=== PATIENT | female | born 1975 | race American Indian/Alaskan Native ===

== ENCOUNTER 2017-06-11 07:30 | Inpatient (IN) | payer BC ==
--- NOTE | 2017-06-10 22:03 | History and Physical Report ---
History of Present Illness Date of examination: 06/09/17 History of present illness: Patient admitted for repeat section. Patient informed the risks of the surgery include bleeding possibly bleeding heavy enough to require blood transfusion, infection possible damage to bowel bladder ureter. Patient understands that due to her previous surgery she is an increased risks of adjacent organ damage. Patient's questions answered. Patient understands and desires to proceed. Menstrual History Regularity: regular Menses every: 27 days Duration: 4 LMP: 09/29/2016 LMP reliability: definite LMP character: normal test type: urine test Date: 11/17/2016 BC at conception: none Planned ? no EDC Calculations LMP: 07/06/2017 EDC Confirmation: 07/06/2017 Past History : 3 Term Births: 1 Premature Births: 1 Living Children: 2 Para: 2 Mult. Births: 0 Prev : 1 Aborta: 0 Elect. Ab: 0 Spont. Ab: 0 Ectopics: 0 # 1 Delivery date: 10/12/2009 Weeks Gestation: 39 labor: no Delivery type: Hours of labor: 14 Anesthesia type: epidural Delivery location: [facility] Infant Sex: Female weight: 7-0 Comments: Large myoma preventing decent # 2 Delivery date: 03/19/2014 Weeks Gestation: 29 2/7 Delivery type: Anesthesia type: general Delivery location: [facility] Sex: female weight: 3.06 Comments: anemia, hemorrhage, placental abruption Past Medical History: Anemia Neurologic Disorder Migraine Blood Transfusions Past Surgical History: x 2 Heel cord surgery 13yo Myomectomy (10/14/2010) w/COLTON Past Medical History Abnormal PAP: negative JOSUE Exposure: negative Infertility: negative Uterine Anomaly: positive Other Gynecologic Problems: negative Social Hx: , no etoh, no illicit drug use, no tobacco use real estate agency principal Middle school Genetic History ADVANCED MATERNAL AGE Congenital Heart Defect: Mom: no Dad: no Steven Disease: Mom: no Dad: no Thalassemia Mom: no Dad: no Neural Tube Defect Mom: no Dad: no Down's Syndrome Mom: no Dad: no Dallas-Sachs Mom: no Dad: no Sickle Cell Disease/Trait Mom: no Dad: no Hemophilia Mom: no Dad: no Muscular Dystrophy Mom: no Dad: no Cystic Fibrosis Mom: no Dad: no Pam Chorea Mom: no Dad: no Mental Retardation Mom: no Dad: no Fragile X Mom: no Dad: no Other Genetic/Chromosomal Disorder Mom: no Dad: no Child w/other defect Mom: no Dad: no Enviromental Exposures Xray Exposure: no Medication, drug, or alcohol use since LMP: no Chemical/Other Exposure: no Exposure to Cat Liter: no 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 Current Allergies (reviewed today): No known allergies Past History Past Medical History: other (See HPI) Past Surgical History: section, myomectomy, other (See HPI) AGRICULTURAL MECHANIC History: fibroids (See HPI), other Family/Genetic History: other (See HPI) Social history: other (See HPI) - Obstetrical History Expected Date of Delivery: 07/06/17 Actual Gestation: 36 Week(s) 3 Day(s) : 3 Para: 2 Hx # Term Pregnancies: 1 Number of Pregnancies: 1 Spontaneous Abortions: 0 Induced : 0 Number of Living Children: 2 Medications and Allergies Allergies Allergy/AdvReac Type Severity Reaction Status Date / Time No Known Allergies Allergy Verified 03/19/14 17:42 Home Medications Medication Instructions Recorded Confirmed Last Taken Type Docusate Sodium [Colace] 100 mg PO BID PRN #60 capsule 03/19/14 Unknown Rx Ferrous Gluconate [Fergon] 325 mg PO QDAY #30 tablet 03/19/14 Unknown Rx Ibuprofen [Motrin] 800 mg PO Q8H PRN #30 tablet 03/19/14 Unknown Rx oxyCODONE /ACETAMINOPHEN [Percocet 1 - 2 tab PO Q6HR PRN #30 tablet 03/19/14 Unknown Rx 5/325] - Physical Exam Breasts: Positive: deferred Cardiovascular: Regular rate Lungs: Positive: Normal air movement Abdomen: Positive: normal appearance, normal bowel sounds Genitourinary (Female): Positive: normal external genitalia Vagina: Positive: normal moisture Uterus: Positive: enlarged Results Result Diagrams: 06/11/17 10:30 All other labs normal. Assessment and Plan - Patient Problems (1) 36 weeks gestation of Current Visit: Yes Status: Acute (2) Placenta previa antepartum in third trimester Current Visit: Yes Status: Acute Plan to address problem: Discuss the risks of the surgery including infection, bleeding possibly heavy enough to require a blood transfusion, possible damage to bowel, bladder or ureter. Her questions were answered. Patient understands and desires to proceed (3) Encounter for sterilization Current Visit: Yes Status: Acute Plan to address problem: Patient desires sterilization.Discuss the permanency of sterilization. High risk of regret and 0.5 to 1% risk of failure. Questions answered Patient understands and desires to proceed. (4) H/O myomectomy Current Visit: No Status: Acute (5) Previous delivery affecting Current Visit: No Status: Acute
[2017-06-11] MEDS: LACTATED RINGERS 1,000 ML IV SCH ×2 (10:58→11:27)
[2017-06-11] MEDS ORDERED: REGLAN IV NR (11:00)
[2017-06-11] MEDS ORDERED: ANCEF/STERILE WATER 2 GM/20 ML 2 GM/20 ML SYRINGE IV NR (11:00)
[2017-06-11] MEDS ORDERED: BICITRA PO NR (11:00)
[2017-06-11] MEDS ORDERED: PITOCin/NS 20 UNIT/1000ML DRIP 20 UNITS/1,000 ML BAG IV SCH ×2 (11:00→15:55)
[2017-06-11] MEDS ORDERED: PEPCID IV NR (11:00)
--- NOTE | 2017-06-11 11:12 | Anesthesia Consultation ---
Anesthesia Consult and Med Hx - Airway Anesthetic Teeth Evaluation: Good ROM Head & Neck: Adequate Mental/Hyoid Distance: Adequate Mallampati Class: Class II Intubation Access Assessment: Probably Good - Pulmonary Exam CTA: Yes - Cardiac Exam Cardiac Exam: RRR - Pre-Operative Health Status ASA Pre-Surgery Classification: ASA2 Proposed Anesthetic Plan: Spinal - Pulmonary Hx Asthma: No COPD: No Hx Pneumonia: No - Cardiovascular System Hx Hypertension: No - Central Nervous System Hx Seizures: No Hx Psychiatric Problems: No - Endocrine Hx Renal Disease: No Hx End Stage Renal Disease: No Hx Hypothyroidism: No Hx Hyperthyroidism: No - Hematic Hx Anemia: No Hx Sickle Cell Disease: No - Other Systems Hx Alcohol Use: No - Additional Comments Anesthesia Medical History Comments:
[2017-06-11] MEDS ORDERED: ASTRAMORPH PF 10MG/10ML ONE (11:30)
[2017-06-11] MEDS ORDERED: PHENERGAN PO PRN (11:37)
[2017-06-11] MEDS ORDERED: NARCAN 0.4 MG/1 ML IV PRN ×2 (11:37→15:55)
[2017-06-11] MEDS ORDERED: PHENERGAN PR PRN (11:37)
[2017-06-11] MEDS ORDERED: DILAUDID IV PRN (11:37)
[2017-06-11] MEDS ORDERED: ZOFRAN IV PRN (11:37)
[2017-06-11 11:39] LABS: Basophils % (Auto) 0.2 % (0.0-1.8); Eosinophils % (Auto) 0.6 % (0.0-4.3); Hematocrit 34.2 % (30.3-42.9); Hemoglobin 11.5 gm/dl (10.1-14.3); Lymphocytes # (Auto) 1.5 K/mm3 (1.2-5.4); Lymphocytes % (Auto) 22.7 % (13.4-35.0); Mean Corpuscular HGB Conc 34 % (30-34); Mean Corpuscular Hemoglobin 32 pg (28-32); Mean Corpuscular Volume 94 fl (79-97); Monocytes # (Auto) 0.7 K/mm3 (0.0-0.8); Monocytes % (Auto) 10.6 % (0.0-7.3); Platelet Count 158 K/mm3 (140-440); Red Blood Count 3.62 M/mm3 (3.65-5.03); Red Cell Distribution Width 15.6 % (13.2-15.2)
[2017-06-11] MEDS ORDERED: SODIUM CHLORIDE FLUSH SYRINGE 10 ML IV NR (12:00)
[2017-06-11] MEDS ORDERED: XYLOCAINE MPF 2% ONE ×4 (12:16→13:49)
[2017-06-11] MEDS ORDERED: NACL 0.9% IR ONE (12:20)
[2017-06-11] MEDS ORDERED: WATER FOR IRRIG STERILE IR ONE (12:20)
[2017-06-11] MEDS ORDERED: VERSED ONE (12:52)
--- NOTE | 2017-06-11 12:59 | Anesthesia Day of Surgery ---
Anesthesia Day of Surgery - Day of Surgery Patient Examined: Yes Patient H&P Reviewed: Yes Patient is NPO: Yes Pj's Test: N/A
[2017-06-11] MEDS ORDERED: ZOFRAN ONE (13:33)
[2017-06-11] MEDS ORDERED: NACL 0.9% 1000 ML 1,000 ML ONE (13:35)
--- NOTE | 2017-06-11 14:08 | Operative Report ---
Operative Report Operative Report: Date of procedure: 06/11/2017 Pre-operative diagnosis: Intrauterine at 36 weeks with placenta previa , previous myomectomy and previous section 2. Patient desires permanent sterilization Post-operative diagnosis: Same plus severe pelvic adhesive disease Procedure name(s): Repeat section with T-ing of the uterine, lysis of adhesions and bilateral tubal ligation modified E[place] type Surgeon: Doe Alejandro MD Leak Patcher: tory Anesthesia: Spinal EBL: 1000 mL Complications: None Findings: Patient with severe adhesions between the anterior abdominal wall and anterior uterus and omentum and rectus muscles. Female weight 6 lbs. 8 oz. Apgars 7 at 1 minute and 8 at 5 minutes. Adhesions of bilateral fallopian tubes with distance adhesions the left fallopian tube normal ovaries bilaterally. Specimen(s): Procedure: The patient was brought to the operating room. A spinal was placed without any complications. She was then placed in left lateral tilt. Prepped and draped in the usual sterile manner. After testing for adequate anesthesia level, a Pfannenstiel incision was made through her previous scar. This incision was taken down to the fascia. The fascia was then nicked in the midline. This incision was extended out laterally with Claire scissors. The fascia was then sharply and bluntly from the underlying rectus muscles. Thick adhesions between the anterior uterine wall rectus muscles and anterior wall of the uterus. The anterior uterine wall was entered during the lysis of lesions. The rectus muscles were bluntly and sharply . The peritoneum was then entered with the angledozer operator's fingers. This incision was spread vertically with care not to damage the bladder below. The bladder flap was then formed sharply and bluntly through thick scarring with Metzenbaum and Claire scissors. No evidence of bladder damage. The Harsh self-retaining tractor was then placed wi. A transverse incision was made in lower uterine segment. This incision was extended with the operators fingers with distention caudally into the incision made in the anterior uterus. An anterior placenta was then approached and down bluntly until the amniotic sac was reached. The amniotic sac was then entered . The infant was delivered from the vertex position. Bulb suction on the mother's abdomen. Cord was double clamped and cut. The was then passed to the nursery personnel who were in attendance. The above scores were given by the nursery personnel. The placenta was then bluntly removed. The uterus was then externalized and wiped clean the remaining products. The uterine incision was closed in layers. First closing deep in the myometrium first vertical incision then the transverse incision. The first closure was done in a locking manner using 0 Vicryl. This was followed by imbricating stitch also with 0 Vicryl. Both the skin and the serosa vertically and transversely. Attention was then switched to the patient's fallopian tubes. Each fallopian tube was identified by its fimbriated end. The left fallopian tube needed lysis of adhesions to expose its fimbriated end which was adhesed to the left side of patient's uterus and adhesed to omentum. Bilaterally the round ligaments were identified also. A portion of each tube was grabbed with the Josephine clamp approximately 2-3 cm from the cornua. Each loop was double ligated with 0 plain suture. The loop were cut with Metzenbaum scissors. Each stump was found to be hemostatic and cauterized with the Bovie. Attention was then switched back to the uterine closure. This closure was hemostatic. The bladder flap was copiously irrigated and found to be hemostatic. The pelvis was copiously irrigated and found to be hemostatic. The uterus was then placed back to the patient's abdomen. The retractors were removed. The rectus muscles were inspected and found to be hemostatic. The fascia was then closed in a running manner using 0 Vicryl. This incision was hemostatic irrigation Bovie. The skin was reapproximated with 4-0 Vicryl subcuticularly. The patient tolerated procedure well. Her urine was clear. The infant was admitted to the well baby nursery. The patient was accompanied to recovery room in good condition. Instrument count correct 3.
[2017-06-11] MEDS: DILAUDID IV PRN ×2 (14:33→14:58)
[2017-06-11] MEDS ORDERED: TORADOL IV PRN (15:18)
[2017-06-11] MEDS ORDERED: LANSINOH TP PRN (15:55)
[2017-06-11] MEDS ORDERED: MILK OF MAGNESIA PO PRN (15:55)
[2017-06-11] MEDS ORDERED: D5LR 1,000 ML IV SCH (15:55)
[2017-06-11] MEDS ORDERED: TUCKS PAD TP PRN (15:55)
[2017-06-11] MEDS ORDERED: ANCEF/NS 1 GM/50 ML 1 GM/50 ML BAG IV SCH (15:55)
[2017-06-11 18:53] LABS: Hemoglobin 9.8 gm/dl (10.1-14.3)
[2017-06-11] MEDS: TORADOL IV SCH ×2 (21:12→21:15)
[2017-06-11] MEDS: ceFAZolin 1 GM in NACL 0.9% 20 ML IV SCH (21:16)
[2017-06-12 03:22] LABS: Hematocrit 24.3 % (30.3-42.9); Hemoglobin 8.1 gm/dl (10.1-14.3)
[2017-06-12] MEDS: ceFAZolin 1 GM in NACL 0.9% 20 ML IV SCH (04:30)
[2017-06-12] MEDS: TORADOL IV SCH ×2 (04:30→10:16)
--- NOTE | 2017-06-12 08:37 | Progress Note ---
Assessment and Plan - Patient Problems (1) delivery delivered Current Visit: Yes Status: Acute (2) Encounter for sterilization Current Visit: Yes Status: Acute (3) Anemia Current Visit: Yes Status: Acute Qualifiers: Other causes of anemia: acute posthemorrhagic Plan to address problem: Asymptomatic, recheck H/H, observe closely Subjective - Subjective Date of service: 06/12/17 Principal diagnosis: POD#1 RC/S with BTL Interval history: No complaints, minimla bleeding Patient reports: appetite normal, voiding normally Objective - Vital Signs Latest vital signs: Vital Signs Temp Pulse Resp BP BP BP Pulse Ox 06/12/17 06:15 97.9 F 87 20 108/67 06/12/17 01:58 97.6 F 79 20 97/53 06/11/17 21:00 98.7 F 81 18 101/62 06/11/17 15:37 98.0 F 93 H 18 99/66 99/66 100 06/11/17 15:30 97.7 F 06/11/17 15:22 16 06/11/17 15:20 86 14 114/75 100 06/11/17 15:15 81 18 112/67 100 06/11/17 15:10 87 14 114/69 100 06/11/17 15:05 77 12 106/62 100 06/11/17 15:00 80 11 L 108/62 100 06/11/17 14:55 75 15 108/56 100 06/11/17 14:50 80 14 110/71 100 06/11/17 14:45 78 12 109/66 100 06/11/17 14:40 78 20 112/66 100 06/11/17 14:35 86 13 106/57 99 06/11/17 14:33 16 06/11/17 14:30 78 14 101/57 100 06/11/17 14:25 79 15 101/62 100 06/11/17 14:20 81 16 108/59 100 06/11/17 14:15 79 12 98/58 99 06/11/17 14:10 82 17 103/55 100 06/11/17 14:05 78 10 L 96/55 100 06/11/17 14:00 81 11 L 94/52 100 06/11/17 13:55 84 10 L 89/44 100 06/11/17 13:52 100 06/11/17 13:50 94.0 F L 06/11/17 10:05 90 126/70 06/11/17 09:53 98.3 F 90 16 126/70 Intake and Output 06/11/17 06/12/17 06/12/17 22:59 06:59 14:59 Intake Total 540 260 Output Total 300 1050 350 Balance -300 -510 -90 Intake: Intake, Free Water 540 260 Output: Urine 300 1050 350 Indwelling Catheter 200 350 Uretheral (George) 300 850 Other: Total, Output Amount 200 350 - Exam Narrative Exam: Patient is breast feeding baby now, limited exam, sitting uo in bed with baby to breast. No complaints - Labs Labs: Abnormal lab results 06/11/17 06/11/17 06/12/17 Range/Units 10:30 18:34 02:39 RBC 3.62 L (3.65-5.03) M/mm3 Hgb 9.8 L 8.1 L (10.1-14.3) gm/dl Hct 30.0 L 24.3 L (30.3-42.9) % RDW 15.6 H (13.2-15.2) % Placer % (Auto) 10.6 H (0.0-7.3) %
[2017-06-12 09:09] LABS: Hematocrit 24.6 % (30.3-42.9)
[2017-06-12] MEDS: FEOSOL PO SCH (09:42)
[2017-06-12] MEDS: MOTRIN PO PRN (16:08)
[2017-06-12] MEDS: NORCO 5/325 PO PRN (16:09)
[2017-06-13] MEDS: NORCO 5/325 PO PRN (04:30)
[2017-06-13] MEDS: MOTRIN PO PRN ×2 (04:30→13:16)
[2017-06-13] MEDS ORDERED: BOOSTRIX IM ONE (04:40)
[2017-06-13 10:31] VITALS: BP 112/62
--- NOTE | 2017-06-13 10:46 | Discharge Summary ---
Providers - Providers Date of Admission: 06/11/17 09:37 Date of discharge: 06/13/17 Attending physician: PEPE MAGUIRE 06/11/17 15:55 Consult to Ordering Machine Operator [CONS] Routine Reason For Exam: Primary care physician: PEPE MAGUIRE Hospitalization Reason for admission: section Delivery: Procedure: section, bilateral tubal ligation Incision: normal, dry, intact complications: other (mild anemia, Hct 26, script for iron) Discharge diagnosis: IUP at term delivered baby: female Hospital course: did well pp and po Condition at discharge: Good Disposition: DC-01 TO HOME OR SELFCARE - Discharge Diagnoses (1) 36 weeks gestation of Status: Acute (2) Anemia Status: Acute Qualifiers: Other causes of anemia: acute posthemorrhagic (3) delivery delivered Status: Acute (4) Encounter for sterilization Status: Acute (5) H/O myomectomy Status: Acute Plan - Discharge Medications Prescriptions: Ibuprofen [Motrin 800 MG tab] 800 mg PO Q6H PRN #30 tablet PRN Reason: Pain Ibuprofen [Motrin 800 MG tab] 800 mg PO Q6H PRN #30 tablet PRN Reason: Pain, Mild (1-3) oxyCODONE /ACETAMINOPHEN [Percocet 5/325 mg] 1 - 2 tab PO Q4H PRN #30 tablet PRN Reason: Pain, Moderate - Provider Discharge Summary Activity: routine, no sex for 6 weeks, no heavy lifting 4 weeks, no strenuous exercise Diet: routine Instructions: routine Additional instructions: [] Smoking cessation referral if applicable(refer to patient education folder for contact #) [] Refer to [facility] Booklet Call your doctor immediately for: * Fever > 100.5 * Heavy vaginal bleeding ( >1 pad per hour) * Severe persistent headache * Shortness of breath * Reddened, hot, painful area to leg or breast * Drainage or odor from incision. * Keep incision clean and dry at all times and follow doctor's instructions regarding bathing/showering - Follow up plan Follow up: PEPE MAGUIRE MD [Primary Care Provider] - 7 Days
[2017-06-13] MEDS: FEOSOL PO SCH (13:16)
== END 2017-06-13 15:20 | disposition home or self-care (01) | DRG 766 ==
LOC: APU 09:37 → OB 16:16
PROVIDERS: ADMIT Obstetrics & Gynecology; ATTEND Obstetrics & Gynecology
PROC: 10D00Z1 Extraction of Products of Conception, Low, Open Approach (ICD-10-PCS; principal; 2017-06-11)
PROC: 0UB70ZZ Excision of Bilateral Fallopian Tubes, Open Approach (ICD-10-PCS; 2017-06-11)
DX: O44.03 Complete placenta previa NOS or without hemorrhage, third trimester (principal); O34.211 Maternal care for low transverse scar from previous cesarean delivery; O99.02 Anemia complicating childbirth; D64.9 Anemia, unspecified; Z3A.36 36 weeks gestation of pregnancy; Z37.0 Single live birth; Z30.2 Encounter for sterilization
CPT/HCPCS: 36415; 85014; 85018; 85025; 86850; 86900; 86901; 88302; 99211; A6250; C1765; G0463; J0690; J1170; J1885; J2250; J2274; J2405; J2590; J2765; J7030; J7120; J7121